=== PATIENT | male | born 2005 | race Hispanic/Latino ===

== ENCOUNTER 2025-07-11 06:52 | Emergency (ER) | payer SELFPAY ==
[2025-07-11 06:55] VITALS: BP 147/80; BMI 33.7
[2025-07-11 06:58] VITALS: BP 147/80
--- NOTE | 2025-07-11 06:59 | ED.MUSCINJ ---
HPI-Injury
General
Chief Complaint: Musculo-Skeletal Complaint
Source: patient
Exam Limitations: none
Time Seen by Provider: 07/11/25 06:54
History of Present Illness-Injury
Initial Injury comments:
20-year-old male [id number] presents complaining of left shoulder pain. He has a history of left shoulder dislocations and fell off a tractor today try to hold onto something and feels like he dislocated his shoulder again. Brought here
by EMS. No numbness or tingling
Phy Exam
Physical Exam
Physical Exam:
General: Well-appearing male no acute respiratory distress HEENT: Normal cephalic atraumatic
Vascular: 2+ radial pulse left wrist
Neurologic: Good sensation left arm
Musculoskeletal exam: Deformity noted to the right shoulder
Injury Course
Orders/Labs/Results
Orders:
Orders
07/11/25 07:00
HYDROmorphone [Dilaudid] 1 mg IV NOW STA
CR Shoulder, Trauma - Left Urgent
Comment:
Reason For Exam: deformity
07/11/25 07:05
HYDROmorphone [Dilaudid] 1 mg .ROUTE .STK-MED ONE
MDM/Problems Addressed
Differential Diagnosis Includes:
Left shoulder pain and deformity. Question possible recurrent dislocation. X-rays pending to evaluate for fracture. Pain medicine ordered
*Pulse Oximetry
Patient hypoxic: no
*Critical Care Note
Total Time (30-74mins, 75-104mins- exclusive of procedures): Not Applicable
Update Note
Update Note:
Upon getting ready for x-ray the patient felt a click in his shoulder. After getting x-rays which were personally reviewed they demonstrate a shoulder that is not dislocated. I suspect he reduced his shoulder himself. No fractures noted on x-ray.
Sling applied. Will advise any follow-up with orthopedics for recurrent shoulder dislocation
ED Attending Note
-
Portions of this chart may have been created with voice recognition software.� Occasional wrong word or��sound alike� substitutions may have occurred due to the inherent limitations of voice recognition software.
Discharge Plan
Departure
Patient Disposition: Home (Routine Discharge)
Date of Disposition: 07/11/25
Time of Disposition: 07:41
Patient with high blood pressure during this ER visit?: No
Discharge Problem:
Dislocated shoulder
Instructions: Muscle and Bone Pain (DC)
Referrals:
Amanuel Carrizales MD [Active, Orthopedics]
NONE,* [Family Provider, Internal Medicine]
Activity Restrictions/Additional Instructions:
Use sling for comfort. Use ibuprofen or Tylenol for pain. Follow-up with orthopedics for further evaluation
Interventions
Interventions:
*Risk Screen - Suicide Last Done: 07/11/25 06:55
*General Assessment Last Done: 07/11/25 06:55
*Neglect/Abuse Screening Last Done: 07/11/25 06:55
*ED- Fall Risk Assessment Last Done: 07/11/25 06:55
*ED COVID-19 Vaccine History Last Done: 07/11/25 06:55
*ED Influenza Vaccine History Last Done: 07/11/25 06:55
ED-Musculoskeletal Assessment Last Done: 07/11/25 07:04
Discharge Date and Time
Print Language: BELARUSIAN
[2025-07-11] MEDS: DILAUDID 1 MG IV (07:09)
--- NOTE | 2025-07-11 09:10 | EDRN ---
Insurance information provided by registration prior to leaving department
== END 2025-07-11 09:12 | disposition home or self-care (01) ==
LOC: EMR 06:52
PROVIDERS: EMERGENCY PHYSICIAN Emergency Medicine
DX: S43.005A Unspecified dislocation of left shoulder joint, initial encounter (principal); V84.4XXA Person injured while boarding or alighting from special agricultural vehicle, initial encounter
CPT/HCPCS: 99284; 96374; 73030